=== PATIENT | female | born 1965 | race African-American/Black ===

== ENCOUNTER 2018-12-25 18:28 | Emergency (ER) | payer MEDICAID, OTHER ==
[~2018-12-25] VITALS: Ht 160 cm; Wt 84.0 kg
[~2018-12-25 18:28] MED LIST: ALPR2TAB2 PO; PANT40TA4 PO; SERT25TA PO
[2018-12-25 20:52] LABS: EOSINOPHILS % 3.3 % (0.0-5.0); HEMATOCRIT. 41.6 % (36.0-48.0); HEMOGLOBIN. 14.3 g/dL (12.0-16.0); LYMPHOCYTES % 32.6 % (20.0-50.0); MEAN CORPUSCULAR HEMOGLOBIN 30.4 pg (28.0-32.0); MEAN CORPUSCULAR VOLUME 88.5 fL (81.0-99.0); MEAN PLATELET VOLUME 7.1 fl (7.4-10.4); MONOCYTES % 9.3 % (2.0-8.0); NEUTROPHILS % 53.8 % (40.0-76.0); PLATELET 232 x1000/uL (130-400)
[2018-12-25 20:56] LABS: CHLORIDE 102 mEq/L (98-107)
[2018-12-25] MEDS ORDERED: HYDROCODONE/ACETAMINOPHEN 5/325MG TABLET PO ONE (21:15)
[2018-12-25] MEDS ORDERED: KETOROLAC 60MG/2ML VIAL IM ONE (21:30)
[2018-12-25 21:56] VITALS: BP 143/90
[2018-12-25] MEDS ORDERED: KETOROLAC 30MG/ML VIAL IV ONE (22:00)
== END 2018-12-25 22:28 | disposition home or self-care (01) ==
LOC: ER 18:28
DX: S39.012A Strain of muscle, fascia and tendon of lower back, initial encounter (principal); V49.49XA Driver injured in collision with other motor vehicles in traffic accident, initial encounter; Y93.89 Activity, other specified; Y92.410 Unspecified street and highway as the place of occurrence of the external cause
CPT/HCPCS: 36415; 71045; 80053; 83690; 84484; 85025; 93005; 96374; 99284; J1885; Z7610

== ENCOUNTER 2020-10-30 01:52 | Inpatient (IN) | payer MEDICAID, SELFPAY ==
[~2020-10-30] VITALS: Ht 167.6 cm; Wt 80.3 kg
[~2020-10-30 01:52] MED LIST changes: -PANT40TA4 PO; +PANT40TA51 PO
[2020-10-30] MEDS ORDERED: MORPHINE SULFATE 4 MG/ML CPJ (NOT FOR IM USE) IV STA (02:26)
[2020-10-30] MEDS ORDERED: ONDANSETRON HCL 4MG/2ML INJ IV STA (02:26)
[2020-10-30] MEDS ORDERED: SODIUM CHLORIDE 0.9% 1,000 ML IV ONE (02:30)
[2020-10-30 02:55] LABS: BASOPHILS % 0.3 % (0.0-2.0); EOSINOPHILS % 1.7 % (0.0-5.0); HEMATOCRIT. 44.8 % (36.0-48.0); HEMOGLOBIN. 15.2 g/dL (12.0-16.0); MEAN CORPUSCULAR HEMOGLOBIN 29.1 pg (28.0-32.0); MEAN PLATELET VOLUME 7.7 fl (7.4-10.4); MONOCYTES % 6.8 % (2.0-8.0); NEUTROPHILS % 63.2 % (40.0-76.0); PLATELET 208 x1000/uL (130-400); RED BLOOD CELL COUNT 5.21 mill/uL (4.2-5.4); RED CELL DISTRIBUTION WIDTH 14.1 % (11.6-14.6)
[2020-10-30 03:01] LABS: CHLORIDE 108 mEq/L (98-107)
[2020-10-30 03:05] LABS: ETHANOL BLOOD < 10 mg/dL
[2020-10-30] MEDS ORDERED: DEXT 5%/0.9% NACL 1,000 ML IV ONE (04:00)
[2020-10-30 08:06] LABS: CLARITY URINE CLEAR (CLEAR); COLOR URINE YELLOW (YELLOW); KETONES URINE NEGATIVE (NEGATIVE); LEUKOCYTE ESTERASE URINE NEGATIVE (NEGATIVE); NITRITE URINE NEGATIVE (NEGATIVE); OCCULT BLOOD URINE NEGATIVE (NEGATIVE); PH URINE 7.5 (4.5-8.0); PROTEIN URINE NEGATIVE (NEGATIVE); SPECIFIC GRAVITY URINE 1.016 (1.005-1.030); UROBILINOGEN URINE 0.2 E.U./dL (0.2-1.0)
[2020-10-30 08:43] LABS: *AMPHETAMINES SCREEN URINE NEGATIVE (NEGATIVE); *BARBITURATES SCREEN URINE NEGATIVE (NEGATIVE); *BENZODIAZEPINES SCREEN URINE NEGATIVE (NEGATIVE); *COCAINE SCREEN URINE NEGATIVE (NEGATIVE); METHADONE URINE SCREEN NEGATIVE (NEGATIVE)
[2020-10-30 08:44] LABS: CANNABINOID URINE SCREEN NEGATIVE (NEGATIVE); OPIATES URINE SCREEN PRESUMTIVE POSITIVE (NEGATIVE); PHENCYCLIDINE URINE SCREEN NEGATIVE (NEGATIVE)
[2020-10-30 09:15] VITALS: BP 135/87
[2020-10-30] MEDS ORDERED: LISI-186 PO (10:25)
[2020-10-30] MEDS ORDERED: ATOR10TA69 PO (10:25)
[2020-10-30] MEDS ORDERED: MAGNESIUM/ALUMINUM HYDROXIDE/SIMETHICONE 30ML UDC PO PRN (10:30)
[2020-10-30] MEDS ORDERED: DOCUSATE SODIUM 100MG CAPSULE PO PRN (10:30)
[2020-10-30] MEDS ORDERED: CLONIDINE 0.1MG TABLET PO PRN (10:30)
[2020-10-30] MEDS ORDERED: ACETAMINOPHEN 325MG TABLET PO PRN (10:30)
[2020-10-30] MEDS: ONDANSETRON HCL 4MG/2ML INJ IV PRN ×2 (11:28→17:30)
[2020-10-30] MEDS: ENOXAPARIN 40MG/0.4ML SYR SUBCUT SCH (11:28)
[2020-10-30] MEDS: KETOROLAC 15MG/ML VIAL IV PRN ×3 (11:29→23:03)
[2020-10-30] MEDS: AMLODIPINE 10MG TABLET PO SCH (11:30)
[2020-10-30 12:00] VITALS: BP 136/85
[2020-10-30 16:00] VITALS: BP 127/76
[2020-10-30 20:00] VITALS: BP 123/75
[2020-10-30] MEDS ORDERED: GUAIFENESIN-DM 200MG-20MG/10ML UDC PO PRN (22:30)
[2020-10-30] MEDS ORDERED: ZOLPIDEM TARTRATE 5MG TABLET PO PRN (22:30)
[2020-10-30] MEDS: ZOLPIDEM TARTRATE 5MG TABLET PO PRN (23:03)
[2020-10-31] VITALS: BP 125/78
[2020-10-31 04:00] VITALS: BP 138/67
[2020-10-31] MEDS: KETOROLAC 15MG/ML VIAL IV PRN ×2 (06:25→17:33)
[2020-10-31 06:43] LABS: BASOPHILS % 0.3 % (0.0-2.0); EOSINOPHILS % 1.7 % (0.0-5.0); HEMATOCRIT. 41.8 % (36.0-48.0); HEMOGLOBIN. 14.1 g/dL (12.0-16.0); LYMPHOCYTES % 40.1 % (20.0-50.0); MEAN CORPUSCULAR VOLUME 85.7 fL (81.0-99.0); MEAN PLATELET VOLUME 8.2 fl (7.4-10.4); MONOCYTES % 14.8 % (2.0-8.0); NEUTROPHILS % 43.1 % (40.0-76.0); PLATELET 179 x1000/uL (130-400); RED BLOOD CELL COUNT 4.88 mill/uL (4.2-5.4)
[2020-10-31 07:12] LABS: CHLORIDE 110 mEq/L (98-107)
[2020-10-31 08:00] VITALS: BP 122/79
[2020-10-31] MEDS: ASPIRIN 81MG EC TABLET PO SCH (08:59)
[2020-10-31] MEDS: AMLODIPINE 10MG TABLET PO SCH (08:59)
[2020-10-31] MEDS: ONDANSETRON HCL 4MG/2ML INJ IV PRN ×2 (09:24→20:34)
[2020-10-31] MEDS: ENOXAPARIN 40MG/0.4ML SYR SUBCUT SCH (11:00)
[2020-10-31 12:00] VITALS: BP 144/75
[2020-10-31 16:00] VITALS: BP 129/76
[2020-10-31 20:00] VITALS: BP 133/90
[2020-10-31] MEDS: ZOLPIDEM TARTRATE 5MG TABLET PO PRN (20:34)
[2020-11-01] VITALS: BP 127/97
[2020-11-01] MEDS: KETOROLAC 15MG/ML VIAL IV PRN ×2 (03:59→08:55)
[2020-11-01 04:00] VITALS: BP 105/66
[2020-11-01 08:00] VITALS: BP 116/78
[2020-11-01 08:15] VITALS: BP 116/78
[2020-11-01 08:55] VITALS: BP 116/75
[2020-11-01] MEDS: ASPIRIN 81MG EC TABLET PO SCH (08:55)
[2020-11-01] MEDS: AMLODIPINE 10MG TABLET PO SCH (08:55)
[2020-11-01] MEDS: ONDANSETRON HCL 4MG/2ML INJ IV PRN (08:55)
== END 2020-11-01 09:55 | disposition home or self-care (01) | DRG 137 ==
LOC: ER 01:52 → 8WST 05:43 → ENRESERV 08:22 → ER 09:19 → 7WST 14:31
PROVIDERS: ADMIT Hospitalist; ATTEND Hospitalist
DX: U07.1 COVID-19 (principal); I10 Essential (primary) hypertension; R10.9 Unspecified abdominal pain
CPT/HCPCS: 36415; 71045; 74176; 80053; 80305; 80320; 81003; 83605; 83880; 84484; 85025; 87426; 93005; 99285; J1650; J1885; J2270; J2405; J7030; J7042; U0003; U0005; G0480

== ENCOUNTER 2022-11-03 18:43 | Emergency (ER) | payer MEDICAID ==
[~2022-11-03] VITALS: Ht 167.6 cm; Wt 81.0 kg
[~2022-11-03 18:43] MED LIST changes: -ALPR2TAB2 PO; +ATOR10TA69 PO; +LISI-186 PO; -SERT25TA PO
[2022-11-03 19:03] VITALS: BP 127/90; PULSE 85; RESP 20; TEMP 98; O2SAT 100
[2022-11-03] MEDS ORDERED: KETOROLAC 30MG/ML VIAL IM ONE (19:15)
[2022-11-03] MEDS ORDERED: KETOROLAC 30MG/ML VIAL IM NR (19:15)
[2022-11-03 19:55] LABS: BASOPHILS % 0.5 % (0.0-2.0); EOSINOPHILS % 2.9 % (0.0-5.0); HEMATOCRIT. 39.4 % (36.0-48.0); HEMOGLOBIN. 13.4 g/dL (12.0-16.0); LYMPHOCYTES % 40.7 % (20.0-50.0); MEAN CORPUSCULAR HEMOGLOBIN 28.6 pg (28.0-32.0); MEAN CORPUSCULAR VOLUME 84.3 fL (81.0-99.0); MEAN PLATELET VOLUME 7.2 fl (7.4-10.4); MONOCYTES % 8.1 % (2.0-8.0); NEUTROPHILS % 47.8 % (40.0-76.0); PLATELET 277 x1000/uL (130-400); RED BLOOD CELL COUNT 4.68 mill/uL (4.2-5.4); WHITE BLOOD COUNT 5.3 x1000/uL (4.5-11.0)
[2022-11-03 20:03] LABS: CHLORIDE 105 mEq/L (98-107); INDEX HEMOLYSI 1 (1-3); INDEX ICTERIC 1 (1-4); INDEX LIPEMIC 1 (1-3); POTASSIUM 4.3 mEq/L (3.5-5.1); SODIUM 137 mEq/L (136-145)
[2022-11-03 20:05] LABS: D-DIMER < 0.19 mg/L FEU (<0.50); PROTHROMBIN TIME 10.8 sec (9.6-11.0)
[2022-11-03 20:10] LABS: ALANINE AMINOTRANSFERASE 25 IU/L (13-61); ALBUMIN 3.8 g/dL (3.4-5.0); ASPARTATE AMINOTRANSFERASE 13 IU/L (15-37); BILIRUBIN TOTAL 0.9 mg/dL (0.1-1.0); CALCIUM 9.1 mg/dL (8.5-10.1); CARBON DIOXIDE 28 mEq/L (21-32); CREATININE 0.7 mg/dL (0.6-1.3); GLUCOSE 84 mg/dL (70-105); PROTEIN TOTAL 8.6 g/dL (6.0-8.3); UREA NITROGEN BLOOD 10 mg/dL (7-21)
[2022-11-03] MEDS ORDERED: IBUP-2029 MT (20:36)
[2022-11-03] MEDS ORDERED: NAP5EC MT (21:20)
[2022-11-03] MEDS ORDERED: LIDO700A15 TP (21:21)
== END 2022-11-03 21:51 | disposition home or self-care (01) ==
LOC: ER 18:43
DX: S93.601A Unspecified sprain of right foot, initial encounter (principal); E78.00 Pure hypercholesterolemia, unspecified; I10 Essential (primary) hypertension; Z79.899 Other long term (current) drug therapy; X58.XXXA Exposure to other specified factors, initial encounter; Y93.89 Activity, other specified; Y92.89 Other specified places as the place of occurrence of the external cause; Y99.8 Other external cause status
CPT/HCPCS: 99285; 93971; 80053; 85025; 85379; 85610; 36415; 73630; 96372; J1885

== ENCOUNTER 2023-09-24 14:43 | Emergency (ER) | payer BC, MEDICAID ==
[~2023-09-24] VITALS: Ht 160 cm; Wt 84.8 kg
[~2023-09-24 14:43] MED LIST changes: +LIDO700A15 TP; +NAP5EC MT
[2023-09-24 15:06] VITALS: BP 125/83; PULSE 71; RESP 18; O2SAT 100
[2023-09-24] MEDS ORDERED: DEXT30SU17 MT (18:31)
[2023-09-24] MEDS ORDERED: TOPUD MT (18:31)
[2023-09-24] MEDS ORDERED: NIRM1TAB8 PO (18:31)
[2023-09-24] MEDS ORDERED: ONDA4TAB50 MT (18:31)
[2023-09-24 18:45] VITALS: TEMP 98.4
[2023-09-24] MEDS: ONDANSETRON 4MG ODT PO ONE (18:45)
[2023-09-24] MEDS: ACETAMINOPHEN 325MG TABLET PO ONE (18:45)
== END 2023-09-24 19:04 | disposition home or self-care (01) ==
LOC: ER 14:53
DX: U07.1 COVID-19 (principal); E78.00 Pure hypercholesterolemia, unspecified; I10 Essential (primary) hypertension; Z79.899 Other long term (current) drug therapy
CPT/HCPCS: 99284; 71045; 87426; 87804 ×2; Q0162

== ENCOUNTER 2023-09-26 07:54 | Emergency (ER) | payer BC, MEDICAID ==
[~2023-09-26] VITALS: Ht 165.1 cm; Wt 82.0 kg
[~2023-09-26 07:54] MED LIST changes: +DEXT30SU17 MT; +NIRM1TAB8 PO; +ONDA4TAB50 MT; +TOPUD MT
[2023-09-26 08:01] VITALS: O2SAT 97
[2023-09-26] MEDS: SODIUM CHLORIDE 0.9% 1,000 ML IV ONE (08:44)
[2023-09-26] MEDS: LISINOPRIL 10MG TABLET PO NR (08:49)
[2023-09-26 08:59] LABS: BASOPHILS % 0.6 % (0.0-2.0); EOSINOPHILS % 4.7 % (0.0-5.0); HEMATOCRIT. 41.1 % (36.0-48.0); HEMOGLOBIN. 13.2 g/dL (12.0-16.0); LYMPHOCYTES % 56.3 % (20.0-50.0); MEAN CORPUSCULAR HEMOGLOBIN 28.3 pg (28.0-32.0); MEAN CORPUSCULAR HGB CONC 32.2 g/dL (31.0-37.0); MEAN PLATELET VOLUME 7.6 fl (7.4-10.4); MONOCYTES % 6.7 % (2.0-8.0); NEUTROPHILS % 31.7 % (40.0-76.0); PLATELET 236 x1000/uL (130-400); RED BLOOD CELL COUNT 4.68 mill/uL (4.2-5.4); RED CELL DISTRIBUTION WIDTH 13.7 % (11.6-14.6); WHITE BLOOD COUNT 4.2 x1000/uL (4.5-11.0)
[2023-09-26 09:15] LABS: PROTHROMBIN TIME 11.4 sec (9.6-11.0)
[2023-09-26 09:20] LABS: CHLORIDE 105 mEq/L (98-107); POTASSIUM 3.9 mEq/L (3.5-5.1); SODIUM 137 mEq/L (136-145)
[2023-09-26 09:21] LABS: CALCIUM 9.3 mg/dL (8.7-10.4); CARBON DIOXIDE 29 mEq/L (21-32)
[2023-09-26 09:26] LABS: CREATININE 0.8 mg/dL (0.6-1.0); GLUCOSE 100 mg/dL (70-105); UREA NITROGEN BLOOD 5 mg/dL (9-23)
[2023-09-26 09:41] LABS: CREATINE KINASE 64 IU/L (34-145)
[2023-09-26] MEDS ORDERED: P20 PO (10:03)
[2023-09-26 10:09] LABS: CLARITY URINE CLEAR (CLEAR); COLOR URINE YELLOW (YELLOW); GLUCOSE URINE NEGATIVE (NEGATIVE); KETONES URINE NEGATIVE (NEGATIVE); LEUKOCYTE ESTERASE URINE NEGATIVE (NEGATIVE); NITRITE URINE NEGATIVE (NEGATIVE); OCCULT BLOOD URINE NEGATIVE (NEGATIVE); PROTEIN URINE NEGATIVE (NEGATIVE); SPECIFIC GRAVITY URINE 1.004 (1.005-1.030); UROBILINOGEN URINE 0.2 E.U./dL (0.2-1.0)
[2023-09-26] MEDS: LORAZEPAM 0.5MG TABLET PO STA (10:18)
[2023-09-26] MEDS: PREDNISONE 20MG TABLET PO ONE (10:18)
[2023-09-26 11:09] VITALS: BP 150/75; PULSE 67; RESP 13; TEMP 98.6
== END 2023-09-26 11:14 | disposition home or self-care (01) ==
LOC: ER 07:54
DX: R42 Dizziness and giddiness (principal); E78.00 Pure hypercholesterolemia, unspecified; I10 Essential (primary) hypertension; Z79.899 Other long term (current) drug therapy
CPT/HCPCS: 99284; 71045; 80048; 81003; 82550; 85025; 85610; 36415; J7512; J7030

== ENCOUNTER 2024-07-30 11:30 | Emergency (ER) | payer BC, MEDICAID ==
[~2024-07-30] VITALS: Ht 160 cm; Wt 83.0 kg
[~2024-07-30 11:30] MED LIST changes: +LIDO-53 TP; -LIDO700A15 TP; -NAP5EC MT; +NAPR-1495 MT; +NIRM1TAB11 PO; -NIRM1TAB8 PO; +P20 PO
[2024-07-30 11:37] VITALS: O2SAT 100
[2024-07-30 11:58] LABS: BASOPHILS % 0.3 % (0.0-2.0); EOSINOPHILS % 2.4 % (0.0-5.0); HEMATOCRIT. 42.3 % (36.0-48.0); LYMPHOCYTES % 49.5 % (20.0-50.0); MEAN CORPUSCULAR HEMOGLOBIN 29.3 pg (28.0-32.0); MEAN CORPUSCULAR HGB CONC 33.2 g/dL (31.0-37.0); MEAN CORPUSCULAR VOLUME 88.3 fL (81.0-99.0); MEAN PLATELET VOLUME 7.6 fl (7.4-10.4); MONOCYTES % 7.6 % (2.0-8.0); NEUTROPHILS % 40.2 % (40.0-76.0); PLATELET 253 x1000/uL (130-400); RED BLOOD CELL COUNT 4.79 mill/uL (4.2-5.4); RED CELL DISTRIBUTION WIDTH 13.9 % (11.6-14.6); WHITE BLOOD COUNT 4.5 x1000/uL (4.5-11.0)
[2024-07-30 12:06] LABS: CHLORIDE 102 mEq/L (98-107); SODIUM 140 mEq/L (136-145)
[2024-07-30 12:07] LABS: CARBON DIOXIDE 31 mEq/L (21-32)
[2024-07-30 12:08] LABS: CALCIUM 9.8 mg/dL (8.7-10.4)
[2024-07-30 12:12] LABS: CREATININE 0.8 mg/dL (0.6-1.0); GLUCOSE 101 mg/dL (70-105)
[2024-07-30 12:13] LABS: UREA NITROGEN BLOOD 8 mg/dL (9-23)
[2024-07-30] MEDS: LISINOPRIL 20MG TABLET PO ONE (12:17)
[2024-07-30 12:18] LABS: HCG SCREEN NEGATIVE
[2024-07-30 12:43] LABS: TROPONIN I HIGH SENSITIVITY < 4 ng/L (3.0-34)
[2024-07-30] MEDS: ONDANSETRON 4MG ODT PO SCH (12:47)
[2024-07-30 14:05] VITALS: BP 145/95; PULSE 70; RESP 16; TEMP 36.8; O2SAT 100
== END 2024-07-30 14:10 | disposition home or self-care (01) ==
LOC: ER 11:30
DX: I10 Essential (primary) hypertension (principal); R07.89 Other chest pain; R11.2 Nausea with vomiting, unspecified; E78.00 Pure hypercholesterolemia, unspecified; Z79.899 Other long term (current) drug therapy; Z98.890 Other specified postprocedural states
CPT/HCPCS: 99284; 71045; 80048; 84703; 85025; 85379; 84484; 36415; 93005; Q0162